=== PATIENT | male | born 1945 | race Caucasian/White ===

== ENCOUNTER 2019-01-24 18:24 | Emergency (ER) | payer MEDICARE, OTHER ==
[2019-01-24] MEDS ORDERED: Bacitracin Oint 1 GM U/D Packet TOP ONE (19:27)
--- NOTE | 2019-01-24 19:32 | EDM.PDOC ---
ED HPI GENERAL MEDICAL PROBLEM - General Chief Complaint: Upper Extremity Injury/Pain Stated Complaint: INJURIED LEFT HAND Time Seen by Provider: 01/24/19 19:10 Source of Information: Reports: Patient History Limitations: Reports: No Limitations - History of Present Illness INITIAL COMMENTS - FREE TEXT/NARRATIVE: 73-year-old male struck the top of his left hand 1 hour ago, and has swelling and bruising with a very small abrasion. It swelled rapidly which concerned him and his because he is on anticoagulants so wanted to get it checked. He really has no pain. Onset: Sudden Duration: Hour(s): (1 hour ago) Location: Reports: Upper Extremity, Left Associated Symptoms: Reports: No Other Symptoms Left Hand Pain Score (Numeric/FACES): 6 - Related Data Allergies Allergy/AdvReac Type Severity Reaction Status Date / Time No Known Allergies Allergy Verified 01/24/19 19:01 Home Meds: Home Meds Carvedilol 12.5 mg PO BID 01/24/19 [History] Losartan Potassium 50 mg PO DAILY 01/24/19 [History] Potassium Chloride 20 meq PO DAILY 01/24/19 [History] Rivaroxaban [Xarelto] 20 mg PO DAILY 01/24/19 [History] Spironolactone [Aldactone] 25 mg PO DAILY 01/24/19 [History] atorvaSTATin [Lipitor] 40 mg PO BEDTIME 01/24/19 [History] rOPINIRole [Requip] 0.5 mg PO BEDTIME 01/24/19 [History] traZODone HCl [Trazodone HCl] 50 mg PO DAILY 01/24/19 [History] Past Medical History HEENT History: Reports: Hard of Hearing Cardiovascular History: Reports: Heart Failure, High Cholesterol, Hypertension Respiratory History: Reports: PE Genitourinary History: Reports: Prostate Disorder Musculoskeletal History: Reports: Fracture Other Musculoskeletal History: Fx ankle skull fx Neurological History: Reports: Concussion, Other (See Below) Other Neuro History: skull fx Hematologic History: Reports: Blood Transfusion(s) Oncologic (Cancer) History: Reports: Basal Cell Carcinoma, Prostate - Past Surgical History GI Surgical History: Reports: Appendectomy, Colonoscopy Male Surgical History: Reports: Prostatectomy Dermatological Surgical History: Reports: Skin Biopsy Social & Family History - Tobacco Use Smoking Status *Q: Never Smoker Second Hand Smoke Exposure: No - Caffeine Use Caffeine Use: Reports: Coffee - Alcohol Use Days Per Week of Alcohol Use: 7 Number of Drinks Per Day: 2 Total Drinks Per Week: 14 - Recreational Drug Use Recreational Drug Use: No Review of Systems - Review of Systems Review Of Systems: See Below Constitutional: Denies: Fever Respiratory: Denies: Shortness of Breath Cardiovascular: Denies: Chest Pain GI/Abdominal: Denies: Abdominal Pain Skin: Reports: Bruising, Other (Small abrasion) Neurological: Reports: No Symptoms ED EXAM, GENERAL - Physical Exam Exam: See Below Exam Limited By: No Limitations General Appearance: Alert, No Apparent Distress Respiratory/Chest: No Respiratory Distress, Lungs Clear Cardiovascular: Regular Rate, Rhythm Skin Exam: Other (A hematoma is on the dorsal aspect of the left hand, a small abrasion overlies the hematoma. He has no bony tenderness or pain with movement. ) Course - Vital Signs Last Recorded V/S: Last Vital Signs Temp 95.8 F 01/24/19 19:17 Pulse 70 01/24/19 19:17 Resp 16 01/24/19 19:17 BP 120/71 01/24/19 19:17 Pulse Ox 94 L 01/24/19 19:17 - Orders/Labs/Meds Meds: Medications Discontinued Medications Generic Name Dose Route Start Last Admin Trade Name Freq PRN Reason Stop Dose Admin Bacitracin 1 dose 01/24/19 19:27 Bacitracin Oint 1 Gm TOP 01/24/19 19:28 ONETIME ONE - Re-Assessments/Exams Free Text/Narrative Re-Assessment/Exam: 01/24/19 19:29 This patient has a hematoma on the top of his left hand, he was reassured that cool compresses, mild pressure in the should resolve. Topical bacitracin and a pressure dressing was applied. He can increase activity as tolerated. Departure - Departure Time of Disposition: 19:49 Disposition: Home, Self-Care 01 Condition: Good Clinical Impression: Traumatic hematoma of left hand Qualifiers: Encounter type: initial encounter Qualified Code(s): S60.222A - Contusion of left hand, initial encounter - Discharge Information Instructions: Hematoma, [id number] Referrals: PCP,None [Primary Care Provider] - Forms: ED Department Discharge Care Plan Goals: Cool compresses and mild pressure with Gutierrez wrapping should reduce swelling over the next few days. Activity as tolerated and recheck in 3-4 days if not improving satisfactorily.
== END 2019-01-24 19:40 | disposition home or self-care (01) ==
LOC: JP.ED 18:24
DX: S60.222A Contusion of left hand, initial encounter (principal); E78.00 Pure hypercholesterolemia, unspecified; I10 Essential (primary) hypertension; Z86.711 Personal history of pulmonary embolism; Z79.01 Long term (current) use of anticoagulants; Z85.46 Personal history of malignant neoplasm of prostate; Z79.899 Other long term (current) drug therapy; W22.8XXA Striking against or struck by other objects, initial encounter
CPT/HCPCS: 99283